=== PATIENT | female | born 1975 | race Caucasian/White ===

== ENCOUNTER 2023-06-19 11:12 | Day surgery (SDC) | payer OTHER ==
[2023-06-16 13:47] LABS: HEMATOCRIT 40.1 % (36.0-45.00); HEMOGLOBIN 13.6 g/dL (12.0-15.00); MEAN CELL VOLUME 89.7 fL (80.00-100.00); MEAN CORPUSCULAR HEMOGLOBIN 30.4 pg (27.00-32.0); MEAN CORPUSCULAR HGB CONC 33.9 g/dl (32.0-36.0); PLATELET COUNT 251 K/uL (150-450); RED BLOOD COUNT 4.47 M/uL (4.00-6.00); RED CELL DISTRIBUTION WIDTH 14.1 % (11.5-14.5)
[2023-06-16 13:58] LABS: PH,URINE 5.5 (5.0-8.0); URINE APPEARANCE Clear; URINE BILIRRUBIN Negative (NEGATIVE); URINE BLOOD Negative; URINE COLOR Yellow; URINE GLUCOSE Negative (NEGATIVE); URINE LEUKOCYTE Negative; URINE NITRATE Negative; URINE PROTEIN Negative (NEGATIVE); URINE UROBILINOGEN 0.2 E.U./dl
[2023-06-16 14:18] LABS: INR 1.08; PARTIAL THROMBOPLASTIN TIME 28.6 SECONDS (22.0-34.0); PROTHROMBIN TIME 11.3 SECONDS (9.0-11.5)
[2023-06-16 14:24] LABS: ALBUMIN 4.1 gm/dL (3.4-5.0); BILIRUBIN TOTAL 1.17 mg/dL (0.3-1.2); CALCIUM 9.2 mg/dL (8.5-10.1); CREATININE SERUM 0.92 mg/dL (0.55-1.02); GFR 65.15; GLOBULINA 3.7 G/DL (2.4-3.5); POTASSIUM 4.09 mEq/L (3.5-5.1); TOTAL PROTEIN 7.8 gm/dL (6.4-8.2)
[2023-06-16 14:59] LABS: URINE BACTERIA 2.5 uL (0.0-1933); URINE WBC 0.1 uL (0.0-23.2)
[~2023-06-19 11:12] MED LIST: XARELTO20 MG PO
[2023-06-19] MEDS ORDERED: MORGIDOX100 MG PO (22:52)
[2023-06-19] MEDS ORDERED: TRAM1TAB98 PO (22:52)
== END 2023-06-20 05:50 | disposition home or self-care (01) ==
LOC: CIR.AMB 11:12
PROVIDERS: ATTEND Obstetrics & Gynecology
DX: D06.9 Carcinoma in situ of cervix, unspecified (principal); N92.1 Excessive and frequent menstruation with irregular cycle

== ENCOUNTER 2023-10-03 08:00 | Inpatient (IN) | payer OTHER ==
[~2023-10-03] VITALS: Ht 167.6 cm; Wt 71.7 kg
[~2023-10-03 08:00] MED LIST changes: +MORGIDOX100 MG PO; +TRAM1TAB98 PO
[2023-10-03 10:30] LABS: HEMATOCRIT 40.4 % (36.0-45.00); HEMOGLOBIN 13.8 g/dL (12.0-15.00); MEAN CELL VOLUME 87.8 fL (80.00-100.00); MEAN CORPUSCULAR HEMOGLOBIN 30.1 pg (27.00-32.0); MEAN CORPUSCULAR HGB CONC 34.2 g/dl (32.0-36.0); PLATELET COUNT 277 K/uL (150-450); RED CELL DISTRIBUTION WIDTH 13.6 % (11.5-14.5)
[2023-10-03 10:36] LABS: URINE APPEARANCE Clear; URINE BILIRRUBIN Negative (NEGATIVE); URINE BLOOD Negative; URINE COLOR Yellow; URINE GLUCOSE Negative (NEGATIVE); URINE LEUKOCYTE Negative; URINE NITRATE Negative; URINE PROTEIN Negative (NEGATIVE); URINE UROBILINOGEN 0.2 E.U./dl
[2023-10-03 10:40] LABS: URINE BACTERIA 372.8 uL (0.0-1933); URINE EPITHELIAL CELLS 21.2 uL (0.0-38.8); URINE RBC 3.4 uL (0.0-20.8); URINE WBC 3.3 uL (0.0-23.2)
[2023-10-03 11:04] LABS: INR 1.04; PARTIAL THROMBOPLASTIN TIME 31.8 SECONDS (22.0-34.0); PROTHROMBIN TIME 10.9 SECONDS (9.0-11.5)
[2023-10-03 11:14] LABS: ALBUMIN 4.5 gm/dL (3.4-5.0); BILIRUBIN TOTAL 1.01 mg/dL (0.3-1.2); CREATININE SERUM 1.01 mg/dL (0.55-1.02); GFR 58.26; GLOBULINA 3.6 G/DL (2.4-3.5); POTASSIUM 4.05 mEq/L (3.5-5.1); TOTAL PROTEIN 8.1 gm/dL (6.4-8.2)
[2023-10-09] MEDS ORDERED: POVIDONE-IODINE 118 ML BOTT TOP ONE ×2 (15:09→17:30)
[2023-10-09] MEDS ORDERED: CEFOXITIN SODIUM 2,000 MG VIAL IV ONE (15:09)
[2023-10-09] MEDS ORDERED: METRONIDAZOLE/SODIUM CHLORIDE 500 MG/100 ML PIGGYBACK IV ONE (15:09)
[2023-10-09] MEDS ORDERED: METRONIDAZOLE/SODIUM CHLORIDE 500 MG/100 ML PIGGYBACK IV SCH (17:30)
[2023-10-09] MEDS ORDERED: CHLORHEXIDINE GLUCONATE 120 ML BOTTLE TOP ONE (17:30)
[2023-10-09] MEDS ORDERED: CEFOXITIN SODIUM 2,000 MG VIAL IV SCH (17:30)
[2023-10-09] MEDS ORDERED: THROMBIN,HU/FIBRINOGEN/CALCIUM 4 ML SYRINGE TOP ONE ×2 (18:15→18:30)
[2023-10-09] MEDS ORDERED: VISTASEAL DUAL APPICATOR 1 EACH APPL TOP ONE ×2 (18:15→18:30)
[2023-10-09] MEDS ORDERED: MEPERIDINE HCL/PF 50 MG/ML VIAL IM PRN (19:00)
[2023-10-09] MEDS ORDERED: KETOROLAC TROMETHAMINE 30 MG VIAL IU PRN (19:00)
[2023-10-09] MEDS ORDERED: PROMETHAZINE HCL 50 MG/ML AMPUL IM PRN (19:00)
[2023-10-09] MEDS ORDERED: RINGERS SOLUTION,LACTATED 1,000 ML IV SCH (19:00)
[2023-10-09] MEDS ORDERED: SIMETHICONE 125 MG CAPSULE PO SCH (21:00)
[2023-10-09] MEDS ORDERED: FAMOTIDINE/PF 20 MG/2 ML VIAL IV SCH (21:00)
[2023-10-09] MEDS ORDERED: FAMOTIDINE/PF 20 MG/2 ML VIAL ONE (22:02)
[2023-10-10 02:38] LABS: HEMATOCRIT 37.8 % (36.0-45.00); HEMOGLOBIN 12.8 g/dL (12.0-15.00); MEAN CELL VOLUME 88.6 fL (80.00-100.00); MEAN CORPUSCULAR HGB CONC 33.8 g/dl (32.0-36.0); PLATELET COUNT 244 K/uL (150-450); RED BLOOD COUNT 4.27 M/uL (4.00-6.00); RED CELL DISTRIBUTION WIDTH 13.5 % (11.5-14.5)
[2023-10-10] MEDS ORDERED: FAMOtidine 20 MG TABLET PO SCH (09:00)
[2023-10-10] MEDS ORDERED: ACETAMINOPHEN WITH CODEINE 1 UDTAB TABLET PO PRN (09:00)
[2023-10-10] MEDS ORDERED: ACETAMINOPHEN-1 EAC2 PO (09:04)
[2023-10-10] MEDS ORDERED: FAMOTIDINE20 MG PO (09:04)
[2023-10-10] MEDS ORDERED: XARELTO20 MG PO (09:09)
== END 2023-10-10 10:37 | disposition home or self-care (01) | DRG 743 ==
LOC: SURH 10-09 08:45 → O/R 10-09 15:02 → OB/GYN 10-09 20:15
PROVIDERS: ADMIT Obstetrics & Gynecology; ATTEND Obstetrics & Gynecology
PROC: 0UT7FZZ Resection of Bilateral Fallopian Tubes, Via Natural or Artificial Opening With Percutaneous Endoscopic Assistance (ICD-10-PCS; 2023-10-09)
PROC: 0DNW4ZZ Release Peritoneum, Percutaneous Endoscopic Approach (ICD-10-PCS; 2023-10-09)
PROC: 0TJB8ZZ Inspection of Bladder, Via Natural or Artificial Opening Endoscopic (ICD-10-PCS; 2023-10-09)
PROC: 0UT9FZZ Resection of Uterus, Via Natural or Artificial Opening With Percutaneous Endoscopic Assistance (ICD-10-PCS; principal; 2023-10-09 12:30)
DX: N72 Inflammatory disease of cervix uteri (principal); N73.6 Female pelvic peritoneal adhesions (postinfective); N81.11 Cystocele, midline; Z20.822 Contact with and (suspected) exposure to COVID-19